=== PATIENT | male | born 1985 | race African-American/Black ===

== ENCOUNTER 2017-12-01 17:01 | Emergency (ER) | payer MEDICAID, OTHER ==
--- NOTE | 2017-12-01 17:31 | ED Physician Documentation ---
PD HPI UPPER EXT INJURY - Stated complaint Stated Complaint: ARM PX - Chief complaint Chief Complaint: Ext Problem - History obtained from History obtained from: Patient - History of Present Illness Location: Left, Elbow (This is an ambidextrous gentleman who 5 days ago was working at home on a ladder and fell hitting his elbow on the ladder on the way down and has pain, points to the area of the medial epicondyle and very proximal humerus as the site of it. No other injuries. He does have a lot of sebaceous cyst and has one on his penis that he like me to look at it just popped up a few days ago to make sure it is not consistent with an STD.) Review of Systems Constitutional: reports: Reviewed and negative Throat: reports: Reviewed and negative Cardiac: reports: Reviewed and negative PD PAST MEDICAL HISTORY - Past Medical History Past Medical History: Yes Cardiovascular: Murmur, Arrhythmia, Other Other Past Medical History: Bradycardia - Past Surgical History Past Surgical History: No HEENT: Tonsil/Adenoidectomy - Present Medications Home Medications: Ambulatory Orders Medication Instructions Recorded Confirmed No Known Home Medications [No 12/01/17 12/01/17 Known Home Medications] - Allergies Allergies/Adverse Reactions: Allergies Allergy/AdvReac Type Severity Reaction Status Date / Time No Known Drug Allergies Allergy Verified 12/06/13 13:13 - Social History Does the pt smoke?: Yes Smoking Status: Current every day smoker Does the pt drink ETOH?: Yes Does the pt have substance abuse?: Yes - Immunizations Immunizations are current?: No Immunizations: TDAP >10years/unknown - POLST Patient has POLST: No PD ED PE NORMAL - Vitals Vital signs reviewed: Yes - General General: Alert and oriented X 3, No acute distress - Derm Derm: Other (He has a noninfected sebaceous cyst on the left side of the penis without any similarities to an STD.) - Extremities Extremities: Other (He is tender over the medial, epicondyle of the left elbow with good range of motion, no mid or distal forearm tenderness or supracondylar tenderness.) Results - Vitals Vitals: Vital Signs - 24 hr 12/01/17 17:12 Temperature 36.6 C Heart Rate 82 Respiratory 16 Rate Blood Pressure 143/88 H O2 Saturation 98 Oxygen O2 Source Room air - Rads (name of study) Micaela huerta 3v Radiology: EMP read contemporaneously (normal) PD MEDICAL DECISION MAKING - ED course ED course: He declined pain medication or work note. - Sepsis Event Vital Signs: Vital Signs - 24 hr 12/01/17 17:12 Temperature 36.6 C Heart Rate 82 Respiratory 16 Rate Blood Pressure 143/88 H O2 Saturation 98 Oxygen O2 Source Room air Departure - Departure Disposition: Home, Self Care Clinical Impression: Left elbow contusion Condition: Good Record reviewed to determine appropriate education?: Yes Instructions: ED Contusion Elbow Comments: Recheck with your doctor in 1 week if not improving, return if worse or if new symptoms develop. Your blood pressure was elevated today on check into the emergency department. This does not mean that you have hypertension, it is a common phenomenon to come to the emergency department and have elevated blood pressure. I recommend that you see your primary care physician within the week to have it rechecked when you are feeling better.
--- NOTE | 2017-12-01 18:44 | XRAY Report ---
Procedure Date: 12/01/2017 Accession Number: [id number] / [id number] Procedure: XR - Elbow 3 View LT CPT Code: FULL RESULT: EXAM: LEFT ELBOW RADIOGRAPHY EXAM DATE: 12/01/2017 06:00 PM. CLINICAL HISTORY: Elbow inj. COMPARISON: None. TECHNIQUE: 3 views. FINDINGS: Bones: Normal. No fractures or bone lesions. Joints: Normal. No effusion. No subluxation. Soft Tissues: There is a mild spur on the olecranon. IMPRESSION: No fracture or subluxation. RADIA
[2017-12-01 19:10] VITALS: BP 137/86
== END 2017-12-01 19:09 | disposition home or self-care (01) ==
LOC: ED 17:01
DX: S50.02XA Contusion of left elbow, initial encounter (principal); W11.XXXA Fall on and from ladder, initial encounter; Y92.009 Unspecified place in unspecified non-institutional (private) residence as the place of occurrence of the external cause; N50.89 Other specified disorders of the male genital organs; R03.0 Elevated blood-pressure reading, without diagnosis of hypertension; F17.200 Nicotine dependence, unspecified, uncomplicated; Z86.79 Personal history of other diseases of the circulatory system
CPT/HCPCS: 99282; 99283

== ENCOUNTER 2018-04-25 12:59 | Emergency (ER) | payer MEDICAID, OTHER ==
[2018-04-25 13:47] LABS: BASOPHILS # (AUTO) 0.1 10^3/uL (0.0-0.1); BASOPHILS % (AUTO) 0.9 %; EOSINOPHILS # (AUTO) 0.1 10^3/uL (0.0-0.7); HGB - HEMOGLOBIN 16.6 g/dL (14.0-18.0); LYMPHOCYTES # (AUTO) 2.5 10^3/uL (1.5-3.5); LYMPHOCYTES % (AUTO) 35.9 %; MEAN CORPUSCULAR HGB CONC 35.9 g/dL (32.0-36.0); MEAN CORPUSCULAR VOLUME 83.4 fL (80.0-94.0); MEAN PLATELET VOLUME 8.3 fL (7.4-11.4); MONOCYTES # (AUTO) 0.7 10^3/uL (0.0-1.0); MONOCYTES % (AUTO) 10.5 %; NEUTROPHILS # (AUTO) 3.5 10^3/uL (1.5-6.6); NEUTROPHILS % (AUTO) 50.7 %; PLT - PLATELET COUNT 227 10^3/uL (130-450); RED BLOOD COUNT 5.55 10^6/uL (4.70-6.10); RED CELL DISTRIBUTION WIDTH 14.5 % (12.0-15.0)
[2018-04-25 13:58] LABS: ALBUMIN 4.5 g/dL (3.2-5.5); ALBUMIN/GLOBULIN RATIO 1.3 (1.0-2.2); BILIRUBIN,TOTAL 0.6 mg/dL (0.2-1.0); CALCIUM 8.7 mg/dL (8.5-10.3); TOTAL PROTEIN 7.9 g/dL (6.7-8.2)
--- NOTE | 2018-04-25 14:37 | ED Physician Documentation ---
PD HPI CHEST PAIN - Stated complaint Stated Complaint: CHEST PAIN - Chief complaint Chief Complaint: Cardiac - History obtained from History obtained from: Patient, Family (mom) - History of Present Illness Timing - onset: Other (This is a 33-year-old gentleman with no known history of coronary disease. As a child he had a symptom medic bradycardia and a murmur which resolved without specific intervention. Over the last 2 weeks he has had accelerating but intermittent central chest pain that is radiating to the jaw. It is worse with supine position and exertion. He is a little short of breath with it. His father's side has some coronary disease in his father has vascular disease without coronary disease.) Review of Systems Constitutional: denies: Fever, Chills Throat: denies: Dental pain / toothache, Oral lesions / sores, Sore throat Cardiac: reports: Chest pain / pressure. denies: Palpitations Respiratory: reports: Dyspnea. denies: Cough GI: denies: Abdominal Pain PD PAST MEDICAL HISTORY - Past Medical History Cardiovascular: Murmur, Arrhythmia, Other - Past Surgical History Past Surgical History: No HEENT: Tonsil/Adenoidectomy - Present Medications Home Medications: Ambulatory Orders Medication Instructions Recorded Confirmed No Known Home Medications 12/01/17 12/01/17 - Allergies Allergies/Adverse Reactions: Allergies Allergy/AdvReac Type Severity Reaction Status Date / Time No Known Drug Allergies Allergy Verified 12/06/13 13:13 - Social History Does the pt smoke?: Yes Smoking Status: Current every day smoker Does the pt drink ETOH?: Yes Does the pt have substance abuse?: Yes - Immunizations Immunizations are current?: No Immunizations: TDAP >10years/unknown - POLST Patient has POLST: No PD ED PE NORMAL - Vitals Vital signs reviewed: Yes - General General: Alert and oriented X 3, No acute distress - HEENT HEENT: PERRL, EOMI - Neck Neck: Supple, no meningeal sign, No bony TTP - Cardiac Cardiac: RRR, No murmur - Respiratory Respiratory: No respiratory distress, Clear bilaterally - Abdomen Abdomen: Normal bowel sounds, Non tender - Rectal Rectal: Deferred - Back Back: No CVA TTP, No spinal TTP - Derm Derm: Normal color, Warm and dry - Extremities Extremities: No edema, No calf tenderness / cord - Neuro Neuro: Alert and oriented X 3, Normal speech Results - Vitals Vitals: Vital Signs - 24 hr 04/25/18 04/25/18 04/25/18 13:09 14:56 17:56 Temperature 36.5 C Heart Rate 79 59 L 88 Respiratory 16 14 20 Rate Blood Pressure 124/74 137/92 H 134/97 H O2 Saturation 99 98 97 04/25/18 04/25/18 20:35 21:20 Temperature Heart Rate 54 L 53 L Respiratory 15 14 Rate Blood Pressure 136/91 H 138/106 H O2 Saturation 98 100 Oxygen O2 Source Room air - EKG (time done) 1315 Rate: Rate (enter#) (73) Rhythm: NSR Bradford: Normal Intervals: Normal [place] QRS: Normal Ischemia: ST elevation c/w repol Computer interpretation: Agree with computer - Labs Labs: Laboratory Tests 04/25/18 04/25/18 04/25/18 13:36 13:36 13:36 WBC 7.0 RBC 5.55 Hgb 16.6 Hct 46.3 MCV 83.4 MCH 30.0 MCHC 35.9 RDW 14.5 Plt Count 227 MPV 8.3 Neut # (Auto) 3.5 Lymph # (Auto) 2.5 Ralls # (Auto) 0.7 Eos # (Auto) 0.1 Baso # (Auto) 0.1 Absolute Nucleated RBC 0.01 Nucleated RBC % 0.2 Sodium 136 Potassium 3.8 Chloride 101 Carbon Dioxide 28 Anion Gap 7.0 BUN 13 Creatinine 1.0 Estimated GFR (MDRD) 103 Glucose 68 L Calcium 8.7 Total Bilirubin 0.6 AST 29 ALT 46 Alkaline Phosphatase 72 Troponin I < 0.04 Total Protein 7.9 Albumin 4.5 Globulin 3.4 Albumin/Globulin Ratio 1.3 Lipase 185 H Urine Color Urine Clarity Urine pH Ur Specific [place] Urine Protein Urine Glucose (UA) Urine Ketones Urine Occult Blood Urine Nitrite Urine Bilirubin Urine Urobilinogen Ur Leukocyte Esterase Ur Microscopic Review Urine Culture Comments 04/25/18 20:30 WBC RBC Hgb Hct MCV MCH MCHC RDW Plt Count MPV Neut # (Auto) Lymph # (Auto) Ralls # (Auto) Eos # (Auto) Baso # (Auto) Absolute Nucleated RBC Nucleated RBC % Sodium Potassium Chloride Carbon Dioxide Anion Gap BUN Creatinine Estimated GFR (MDRD) Glucose Calcium Total Bilirubin AST ALT Alkaline Phosphatase Troponin I Total Protein Albumin Globulin Albumin/Globulin Ratio Lipase Urine Color YELLOW Urine Clarity CLEAR Urine pH 6.0 Ur Specific [place] >=1.030 H Urine Protein NEGATIVE Urine Glucose (UA) NEGATIVE Urine Ketones NEGATIVE Urine Occult Blood NEGATIVE Urine Nitrite NEGATIVE Urine Bilirubin NEGATIVE Urine Urobilinogen 0.2 (NORMAL) Ur Leukocyte Esterase NEGATIVE Ur Microscopic Review NOT INDICATED Urine Culture Comments NOT INDICATED - Rads (name of study) 1v chest Radiology: EMP read contemporaneously (NAD) NM Stress treadmill Radiology: EMP read contemporaneously (Moderate size region of the mid and distal anterior wall and anterior septum demonstrate mild to moderate decreased perfusion with stress with partial normalization of the septum and complete normalization of the anterior wall with rest. LVEF 64%, normal wall motion) PD MEDICAL DECISION MAKING - ED course ED course: 33yo with intermittent, sometimes exertional CP x 2 weeks. EKG nl and no CP in the dept. Consider CT coronary angiography but at that time the CT scanner was down so we did arrange for a stress test, we had enough isotope to get him done today. He remained pain-free in the department. However his stress test was positive. Case was discussed by phone with Dr. Vilchis, green prize packer at [facility] who recommended transfer on a heparin drip for likely cath in the morning. Unfortunately [facility] was full and they could not accept the transfer so Warner was called at 8:55 PM. He was accepted by Dr. Juarez at [facility] at [id number]. He also requested that I speak with the on-call green prize packer and they were paged but Dr. Juarez is the accepting and cobras were completed. Note that he needs transfer to a higher level of care for cardiology consultation and likely coronary angiography. Spoke with Cardiology, Dr Ivey, and he will see in consult. Departure - Departure Disposition: 02 Transfer Acute Care Hosp Clinical Impression: Chest pain, Positive cardiac stress test Condition: Stable
--- NOTE | 2018-04-25 19:14 | XRAY Report ---
Reason: chest pain/soa Procedure Date: 04/25/2018 Accession Number: [id number] / [id number] Procedure: XR - Chest 1 View X-Ray CPT Code: 70705 FULL RESULT: EXAM: CHEST RADIOGRAPHY EXAM DATE: 04/25/2018 01:30 PM. CLINICAL HISTORY: Chest pain/soa. COMPARISON: CHEST 2 VIEW PA/LAT 10/21/2014 7:41 AM. TECHNIQUE: 1 view. FINDINGS: Lungs/Pleura: No focal opacities evident. No pleural effusion. No pneumothorax. Mediastinum: Within exam limitations, the cardiomediastinal contour is normal. Other: None. IMPRESSION: 1. Negative for active cardiopulmonary process. 2. Interval resolution of mid left lung infiltrate as compared to chest 2 views 10/21/2014. RADIA
--- NOTE | 2018-04-25 20:15 | Nuclear Medicine Report ---
Reason: intermittent cp Procedure Date: 04/25/2018 Accession Number: [id number] / [id number] Procedure: NM - Myocardial Perfusion STR/RST CPT Code: FULL RESULT: EXAM: SINGLE-ISOTOPE EXERCISE STRESS TEST. SINGLE-ISOTOPE AND ONE-DAY REST/STRESS MYOCARDIAL PERFUSION SCANS WITH TOMOGRAPHIC IMAGING, QUANTITATIVE ANALYSIS, WALL MOTION ANALYSIS AND CALCULATION OF EJECTION FRACTION. EXAM DATE: 04/25/2018 07:06 PM. CLINICAL HISTORY: Intermittent chest pain. COMPARISON: CHEST 1 VIEW 04/25/2018 1:28 PM. TECHNIQUE: A rest myocardial perfusion scan was done with tomography after the intravenous administration of 10 mCi Tc-99m sestamibi. After an appropriate delay, a treadmill exercise stress was performed according to department protocol. The patient exercised for 10 minutes and 06 seconds. The maximum heart rate was 160 bpm, which was 86% of the maximum predicted heart rate. 11.95 METs achieved. At approximately peak heart rate, 42 mCi of Tc-99m sestamibi was injected for stress myocardial perfusion scan. Motion correction was applied when appropriate. Gated tomographic images were obtained for wall motion analysis and computation of left ventricular ejection fraction. FINDINGS: Stress perfusion images demonstrate moderate-sized region of a mild to moderately decreased perfusion in the mid and distal anterior wall and anterior septum. The areas of decreased perfusion involving the anterior wall normalize with rest. The anterior septal portion is partially normalized with rest. No other convincing perfusion abnormalities. No convincing evidence of transient ischemic dilatation. Wall motion analysis demonstrates normal wall motion. The left ventricular end-diastolic volume is 98 cc. The left ventricular end-systolic volume is 36 cc. The left ventricular ejection fraction is calculated to be 64%. IMPRESSION: 1. Moderate-sized region of the mid and distal anterior wall and anterior septum demonstrate mild to moderate decreased perfusion with stress with partial normalization of the septum and complete normalization of the anterior wall with rest. Findings may represent areas of ischemia. 2. Normal left ventricular ejection fraction of 64%. 3. Normal segmental and global wall motion. 4. Normal left ventricular cavity size, no change with stress. RADIA
[2018-04-25] MEDS ORDERED: ASPIRIN CHEW 81 MG TABLET PO STA (20:27)
[2018-04-25] MEDS ORDERED: METOPROLOL TARTRATE 50 MG TABLET PO STA (20:30)
[2018-04-25] MEDS ORDERED: HEPARIN 25000UNITS/500ML (D5W) 25,000 UNIT/500 ML BAG IV STA (20:54)
[2018-04-25 21:15] LABS: BILIRUBIN,URINE NEGATIVE (NEGATIVE); GLUCOSE, URINE (UA) NEGATIVE (NEGATIVE); KETONES,URINE (UA) NEGATIVE (NEGATIVE); LEUKOCYTE ESTERASE, URINE NEGATIVE (NEGATIVE); NITRITE,URINE NEGATIVE (NEGATIVE); OCCULT BLOOD,URINE NEGATIVE (NEGATIVE); PROTEIN,URINE NEGATIVE (NEGATIVE); UROBILINOGEN,URINE 0.2 (NORMAL) E.U./dL (NORMAL)
[2018-04-25 21:16] LABS: CLARITY,URINE CLEAR (CLEAR)
[2018-04-25] MEDS ORDERED: LORazepam 2 MG/ML VIAL IVP STA (22:03)
[2018-04-25 22:41] VITALS: BP 135/90
== END 2018-04-25 22:41 | disposition short-term general hospital (02) ==
LOC: ED 12:59
DX: R07.9 Chest pain, unspecified (principal); F17.200 Nicotine dependence, unspecified, uncomplicated
CPT/HCPCS: 36415; 71045; 78452; 80053; 81003; 83690; 84484; 85025; 93005; 93017; 96365; 96366; 96375; 99284; A9270; A9500; J2060; 81001; 87086

== ENCOUNTER 2018-04-25 22:38 | Outpatient (CLI) | payer MEDICAID | END 2018-04-25 22:39 | disposition short-term general hospital (02) | LOC: EMS 22:38 | PROVIDERS: ATTEND Surgery | DX: R07.9 Chest pain, unspecified (principal) | CPT/HCPCS: A0425; A0426 ==

== ENCOUNTER 2019-02-22 10:55 | Outpatient (CLI) | payer MEDICAID ==
--- NOTE | 2019-02-23 10:16 | XRAY Report ---
Reason: KNEE PAIN Procedure Date: 02/22/2019 Accession Number: [id number] / [id number] Procedure: XRN - Knee 3 View BILAT CPT Code: FULL RESULT: EXAMS: 1. Right Knee Radiography 2. Left Knee Radiography EXAM DATE:02/22/2019 11:25 AM. CLINICAL HISTORY:KNEE PAIN. COMPARISON: None. TECHNIQUE: 3 views each. FINDINGS: Right Knee: Bones: Normal. No fractures or bone lesions. Joints: Normal. No effusion. No subluxations. Soft Tissues: Normal. No soft tissue swelling. Left Knee: Bones: Normal. No fractures or bone lesions. Joints: Normal. No effusion. No subluxations. Soft Tissues: Normal. No soft tissue swelling. IMPRESSION: No significant bony abnormality. RADIA
== END 2019-02-22 10:56 | disposition home or self-care (01) ==
LOC: DI.N 10:55
PROVIDERS: ATTEND Physician Assistant Medical
DX: M25.561 Pain in right knee (principal); M25.562 Pain in left knee

== ENCOUNTER 2020-06-18 11:50 | Outpatient (CLI) | payer OTHER | END 2020-06-18 23:59 | disposition home or self-care (01) | LOC: COV 11:50 | PROVIDERS: ATTEND Family Medicine | DX: U07.1 COVID-19 (principal) ==

== ENCOUNTER 2020-08-18 07:49 | Outpatient (CLI) | payer OTHER ==
--- NOTE | 2020-08-18 10:06 | XRAY Report ---
PROCEDURE: Lumbar Spine Complete INDICATIONS: SCIATICA TECHNIQUE: 4 views of the lumbar spine were acquired. COMPARISON: None. FINDINGS: Bones: 5 [id number] vertebrae are present. There is normal bony alignment. There is severe di sc space narrowing at L5-S1. Moderate to severe foraminal narrowing is also noted at L5-S1. No verteb ral body compression fractures. No suspicious bony lesions. Soft tissues: Overlying bowel gas pattern is normal. No suspicious soft tissue calcifications. IMPRESSION: Degenerative changes most notable at L5-S1. As clinically indicated, MRI may be obtained for additional evaluation. Reviewed by: Latoya Weeks MD on 08/18/2020 10:04 AM PDT Approved by: Latoya Weeks MD on 08/18/2020 10:04 AM PDT Station ID: [id number]
--- NOTE | 2020-08-18 10:08 | XRAY Report ---
PROCEDURE: Toe(s) RT INDICATIONS: INJURY RIGHT GREAT TOE TECHNIQUE: 3 views of the toe(s) acquired. COMPARISON: None FINDINGS: Bones: Small calcification is noted at the base of the first proximal phalanx.. No suspicious bony l esions. Soft tissues: No suspicious soft tissue densities. Soft tissue edema is noted at the first DIP join t. IMPRESSION: Small calcification at the base of the first proximal phalanx. This could be degenerative versus smal l avulsion injury. Recommend correlation to area of point tenderness. First DIP joint soft tissue edema. No visualized acute fracture or dislocation. However, occult injur y cannot be excluded. Recommend short interval imaging follow-up in 7-10 days as clinically indicated for additional evaluation. Reviewed by: Latoya Weeks MD on 08/18/2020 10:07 AM PDT Approved by: Latoya Weeks MD on 08/18/2020 10:07 AM PDT Station ID: [id number]
== END 2020-08-18 07:50 | disposition home or self-care (01) ==
LOC: DI 07:49
PROVIDERS: ATTEND Family Medicine
DX: M47.27 Other spondylosis with radiculopathy, lumbosacral region (principal); M48.07 Spinal stenosis, lumbosacral region; S90.931A Unspecified superficial injury of right great toe, initial encounter

== ENCOUNTER 2022-03-05 14:13 | Outpatient (CLI) | payer OTHER ==
[2022-03-05] MEDS ORDERED: ALBUTEROL 1 PUFF INH STA (16:20)
== END 2022-03-05 14:14 | disposition home or self-care (01) ==
LOC: RT 14:13
PROVIDERS: ATTEND Physician Assistant
DX: R06.02 Shortness of breath (principal)
CPT/HCPCS: 94060

== ENCOUNTER 2022-04-19 16:46 | Outpatient (CLI) | payer OTHER ==
[2022-04-19] MEDS ORDERED: iohexoL-300 100 ML VIAL ONE (17:35)
[2022-04-19] MEDS ORDERED: iohexoL-300 100 ML VIAL IVP ONE (18:29)
--- NOTE | 2022-04-20 08:51 | CT Report ---
PROCEDURE: SOFT TISSUE NECK W INDICATIONS: WHEEZING, DYSPNEA CONTRAST: 100ml Omnipaque 300 TECHNIQUE: After the administration of intravenous contrast, 3.0 mm axial sections acquired from the sella to th e aortic arch. Additional oblique axial 3.0 mm sections acquired through the pharynx. 3 mm thick co rhianna reformats were generated. For radiation dose reduction, the following was used: automated exp osure control, adjustment of mA and/or kV according to patient size. COMPARISON: Correlation is made with chest radiograph, 03/05/2022. FINDINGS: Image quality: Excellent. Lymph nodes: No enlarged lymph nodes seen throughout the neck. Vessels: Visualized vasculature appears patent. Neck spaces: The oropharynx, nasopharynx, and pharynx demonstrate no mucosal lesions. The vocal cor ds, false vocal cords, pyriform sinuses, epiglottis, vallecula, and tongue base all appear normal. E xtramucosal spaces appear unremarkable. Glands: The parotid and submandibular glands appear normal. The thyroid is normal in size and there are no incidental findings. Miscellaneous: Visualized brain and orbits appear normal. Lung apices appear clear. Superficial so ft tissues appear normal. Bones: No suspicious bony lesions. Moderate to prominent mucosal thickening can be seen within the l eft maxillary sinus. The medial wall of the left maxillary sinus is demineralized. Moderate mucosal t hickening is seen within the right maxillary sinus, with mild demineralization of the medial wall of the right maxillary sinus. Milder mucosal thickening is seen elsewhere within the paranasal sinuses. No significant abnormal fluid can be seen within the mastoid air cells. Mild to moderate lower cervical spine degenerative changes are seen. IMPRESSION: Paranasal sinus disease is seen, which is worst within the left maxillary sinus. The associated bony demineralization is suggestive of chronic sinus disease. No airway compromise is seen. No masses or enlarged lymph nodes are seen. Additional findings: Mild to moderate lower cervical spine degenerative change Reviewed by: Gurinder Squires MD on 04/20/2022 7:50 AM [place] Approved by: Gurinder Squires MD on 04/20/2022 7:50 AM [place] Station ID: [id number]
== END 2022-04-19 16:47 | disposition home or self-care (01) ==
LOC: DI 16:46
PROVIDERS: ATTEND Physician Assistant
DX: R06.2 Wheezing (principal); J32.0 Chronic maxillary sinusitis
CPT/HCPCS: 70491; Q9967

== ENCOUNTER 2023-06-22 13:00 | Outpatient (CLI) | payer SELFPAY | END 2023-06-22 13:15 | disposition home or self-care (01) | LOC: LAB.N 13:00 | PROVIDERS: ATTEND Nurse Practitioner | DX: R07.0 Pain in throat (principal) | CPT/HCPCS: 87070 ==

== ENCOUNTER 2023-06-24 11:16 | Emergency (ER) | payer OTHER ==
[2023-06-24] MEDS ORDERED: DEXAMETHASONE 10 MG/ML VIAL IVP STA (12:11)
[2023-06-24] MEDS ORDERED: SODIUM CHLORIDE 0.9% 1,000 ML IV STA (12:11)
--- NOTE | 2023-06-24 12:13 | ED Physician Documentation ---
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 It was managed conservatively/expectantly. He got a sore throat over the last few days and really cannot swallow anything due to a combination of pain and feeling like there is an obstruction in his throat and his voice is changed. He had a low-grade fever with this and went to the walk- in clinic where reportedly a rapid strep was negative. He is very worried about cancer, has a history of HPV. PD PAST MEDICAL HISTORY - Past Medical History Cardiovascular: Murmur, Arrhythmia, Other Respiratory: Asthma - Past Surgical History Past Surgical History: No HEENT: Tonsil/Adenoidectomy - Present Medications Home Medications: Ambulatory Orders Medication Instructions Recorded Confirmed No Known Home Medications 12/01/17 06/24/23 - Allergies Allergies/Adverse Reactions: Allergies Allergy/AdvReac Type Severity Reaction Status Date / Time No Known Drug Allergies Allergy Verified 06/24/23 11:24 - Social History Does the pt smoke?: Yes Smoking Status: Current every day smoker Does the pt drink ETOH?: Yes Does the pt have substance abuse?: Yes - Immunizations Immunizations are current?: No Immunizations: TDAP >10years/unknown - POLST Patient has POLST: No PD ED PE NORMAL - Vitals Vital signs reviewed: Yes - General General: Alert and oriented X 3 - Neck Neck: Supple, no meningeal sign, No bony TTP, Other (Mildly laryngitic voice but generally speaking fine, visualized portions of the oropharynx are unremarkable) - Neuro Neuro: Alert and oriented X 3, Normal speech Results - Vitals Vitals: Vital Signs - 24 hr 06/24/23 06/24/23 11:21 15:30 Temperature 36.8 C Heart Rate 107 H 88 Respiratory 18 20 Rate Blood Pressure 145/95 H 147/98 H O2 Saturation 99 96 Oxygen O2 Source Room air - Labs Labs: Laboratory Tests 06/24/23 06/24/23 12:21 12:21 WBC 12.7 H RBC 5.97 Hgb 17.3 Hct 48.7 MCV 81.6 MCH 29.0 MCHC 35.5 RDW 13.5 Plt Count 268 MPV 9.5 Neut # (Auto) 7.9 H Lymph # (Auto) 3.4 Sharp # (Auto) 1.2 H Eos # (Auto) 0.1 Baso # (Auto) 0.1 Absolute Nucleated RBC 0.00 Nucleated RBC % 0.0 Sodium 137 Potassium 3.9 Chloride 101 Carbon Dioxide 27 Anion Gap 9.0 BUN 21 H Creatinine 1.3 Estimated GFR (MDRD) 74 L Glucose 89 Calcium 9.9 Total Bilirubin 1.0 AST 19 ALT 31 Alkaline Phosphatase 74 Total Protein 8.9 Albumin 4.7 Globulin 4.2 Albumin/Globulin Ratio 1.1 - Rads (name of study) CT neck Relevant Findings:: Final report received, EMP independent interpretation of test PD Medical Decision Making - ED course ED course: 38-year-old gentleman with sore throat and difficulty swallowing and mildly hoarse voice with a history of some sort of previous problem on nasolaryngoscopy. Workup in the emergency department demonstrates mild leukocytosis at 12, he is a little dry on his CMP with a BUN of 21. During his stay his throat culture from the other day from the clinic came up negative, and CT of the neck demonstrated changes consistent with epiglottitis. Right now, he does not have any current airway issues but probably needs to be closely observed for that and I ordered blood cultures and Rocephin and vancomycin per up-to-date guidelines. He had already received some Decadron and IV fluids. I discussed the case by phone with our local OMFS, Dr. Matt Griffin who notes that he is available for help with airway management, but the diagnosis is outside of his scope and recommends transfer to a facility with ENT. I asked the [facility] to start calling around at 3:08 PM. Excepted to [facility] at 4:10 PM by [facility] hospitalist Yasmin Hooper. He is stable for transport. Departure - Departure Disposition: 02 Transfer Acute Care Hosp Clinical Impression: Epiglottitis Condition: Serious Forms: PCP List
[2023-06-24 12:25] LABS: BASOPHILS # (AUTO) 0.1 10^3/uL (0.0-0.1); BASOPHILS % (AUTO) 0.4 %; EOSINOPHILS # (AUTO) 0.1 10^3/uL (0.0-0.7); HCT - HEMATOCRIT 48.7 % (42.0-52.0); HGB - HEMOGLOBIN 17.3 g/dL (14.0-18.0); LYMPHOCYTES # (AUTO) 3.4 10^3/uL (1.5-3.5); LYMPHOCYTES % (AUTO) 26.5 %; MEAN CORPUSCULAR HGB CONC 35.5 g/dL (32.0-36.0); MEAN CORPUSCULAR VOLUME 81.6 fL (80.0-94.0); MEAN PLATELET VOLUME 9.5 fL (7.4-11.4); MONOCYTES # (AUTO) 1.2 10^3/uL (0.0-1.0); MONOCYTES % (AUTO) 9.3 %; NEUTROPHILS # (AUTO) 7.9 10^3/uL (1.5-6.6); NEUTROPHILS % (AUTO) 62.4 %; PLT - PLATELET COUNT 268 10^3/uL (130-450); RED BLOOD COUNT 5.97 10^6/uL (4.70-6.10); RED CELL DISTRIBUTION WIDTH 13.5 % (12.0-15.0); WHITE BLOOD COUNT 12.7 x10^3/uL (4.8-10.8)
[2023-06-24 12:39] LABS: ALBUMIN 4.7 g/dL (3.2-5.5); ALBUMIN/GLOBULIN RATIO 1.1 (1.0-2.2); CALCIUM 9.9 mg/dL (8.5-10.3); CREATININE 1.3 mg/dL (0.6-1.3); POTASSIUM 3.9 mmol/L (3.5-4.5); TOTAL PROTEIN 8.9 g/dL (6.4-8.9)
[2023-06-24] MEDS ORDERED: iohexoL-300 100 ML VIAL ONE (13:37)
[2023-06-24] MEDS ORDERED: iohexoL-300 100 ML VIAL IVP ONE (14:33)
--- NOTE | 2023-06-24 14:57 | CT Report ---
PROCEDURE: CT neck with contrast INDICATIONS: can't swallow neck pain TECHNIQUE: Helical axial CT of the neck was obtained after an intravenous contrast injection, and re formatted in multiple planes. Radiation dose reduction was achieved using automated exposure control or adjustment of mA and/or kV according to patient size. COMPARISON: 04/19/2022 FINDINGS: Skull Base: The visualized intracranial contents, skull, and orbits are unremarkable. Visualized par anasal sinuses are clear. Pharynx and Larynx: There is mucosal edema and swelling centered on the epiglottis also involving the aryepiglottic folds with significant change from the prior exam. Airway however is patent. No midlin e shift. The nasopharyngeal airway is patent and midline. Parapharyngeal soft tissues including palantine to nsils and base of the tongue are normal. Retropharyngeal space unremarkable. Normal appearance of t he false and true vocal cords. Muscles and Fascial Planes: Fascial planes are well maintained. No abscess or mass lesion. Lymph Nodes: Bilateral level 2 adenopathy measures up to 1 cm short axis Vasculature: Unremarkable. Submandibular and Parotid Glands: Normal in size and attenuation. Thyroid: Unremarkable. No enlarged or calcified nodules. Bones: Degenerative disc disease and arthropathy noted at C4-5 and C5-6 with anterior osteophytes Lung Apices: The visualized lung apices are clear. IMPRESSION: Epiglottitis. Mucosal thickening and edema noted involving the epiglottis and area epiglottic folds. No abscess or midline shift. Bilateral level 2 deep cervical adenopathy. Incidental and cervical degenerative disc disease and arthropathy Reviewed by: Jhonathan Nelson MD on 06/24/2023 1:56 PM [place] Approved by: Jhonathan Nelson MD on 06/24/2023 1:56 PM [place] Station ID: [id number]
[2023-06-24] MEDS ORDERED: VANCOMYCIN INJ 1.5 GM in SODIUM CHLORIDE 0.9% 500 ML IV STA (15:00)
[2023-06-24] MEDS ORDERED: cefTRIAXone 1 GM VIAL IVP STA (15:00)
[2023-06-24 16:20] LABS: B. PARAPERTUSSIS- RESP PCR PAN NOT DETECTED; B. PERTUSSIS- RESP PCR PANEL NOT DETECTED; C. PNEUMONIAE- RESP PCR PANEL NOT DETECTED; CORONAVIRUS 229E-RESP PCR NOT DETECTED; CORONAVIRUS HKU1-RESP PCR NOT DETECTED; CORONAVIRUS NL63-RESP PCR NOT DETECTED; CORONAVIRUS OC43-RESP PCR NOT DETECTED; HUMAN METAPNEUMOVIRUS NOT DETECTED; INFLUENZA A- RESP PCR PANEL NOT DETECTED; INFLUENZA B - RESP PCR PANEL NOT DETECTED; M. PNEUMONIAE- RESP PCR PANEL NOT DETECTED; PARAINFLUENZA VIRUS 1 NOT DETECTED; PARAINFLUENZA VIRUS 2 NOT DETECTED; PARAINFLUENZA VIRUS 3 NOT DETECTED; PARAINFLUENZA VIRUS 4 NOT DETECTED; RHINOVIRUS/ENTEROVIRUS NOT DETECTED; RSV- RESP PCR PANEL NOT DETECTED; SARS-CoV-2 -RESP PCR PANEL NOT DETECTED
[2023-06-24 19:23] VITALS: BP 108/60; O2SAT 100
== END 2023-06-24 19:30 | disposition short-term general hospital (02) ==
LOC: ED 11:16
DX: J05.10 Acute epiglottitis without obstruction (principal)
CPT/HCPCS: 36415; 70491; 80053; 85025; 87040; 87633; 96365; 96366; 96375; 99284; 99285; J3370; Q9967; 87150